=== PATIENT | female | born 1980 | race African-American/Black ===

== ENCOUNTER 2019-02-20 17:11 | Emergency (ER) | payer OTHER ==
[~2019-02-20] VITALS: Ht 167.6 cm; Wt 62.6 kg
[2019-02-20 17:18] VITALS: BP 114/63
[2019-02-20] MEDS ORDERED: ONDANSETRON 4 MG ODT PO ONE (17:40)
[2019-02-20] MEDS ORDERED: KETOROLAC 60 MG/2 ML VIAL IM ONE (17:40)
[2019-02-20 18:12] VITALS: BP 114/63
== END 2019-02-20 18:11 | disposition home or self-care (01) ==
LOC: MED 17:11
DX: R10.13 Epigastric pain (principal); R11.0 Nausea
CPT/HCPCS: 81002; 81025; 96372; 99283; J1885; Q0162

== ENCOUNTER 2020-12-15 10:26 | Emergency (ER) | payer MEDICAID, OTHER ==
[~2020-12-15] VITALS: Ht 167.6 cm; Wt 74.8 kg
[2020-12-15 10:26] VITALS: BP 110/82
== END 2020-12-15 11:37 | disposition left against medical advice (07) ==
LOC: MED 10:26
DX: R10.30 Lower abdominal pain, unspecified (principal); Z53.21 Procedure and treatment not carried out due to patient leaving prior to being seen by health care provider